=== PATIENT | female | born 1925 | race Caucasian/White ===

== ENCOUNTER 2016-10-02 22:29 | Emergency (ER) | payer MEDICARE, OTHER ==
--- NOTE | ~2016-10-02 | ER ---
PATIENT'S NAME: RICKEY OAKLEYNJ Julian [facility] AGE: 89 Y [address] ROOM: [place] [address] LOCATION: ED ADMIT DATE: 10/02/2016 ER/Outpatient Report DISCHARGE DATE: 10/03/2016 FAMILY PHYSICIAN: Physician, Unknown ATTENDING PHYSICIAN: Norm Escobar Admission date and time are documented on the medical record. I saw the patient at 2240 hours. CHIEF COMPLAINT: Midanterior chest pain and epigastric pain. HISTORY OF PRESENT ILLNESS: The patient is an 89-year-old female who comes in with a 6-hour history of midabdominal pain and epigastric pain. The patient does have Alzheimer's dementia and questionable whether she answers questions properly. Seems to lose her train of thought easily. Asking the questions about a headache, she denies headache, denies neck pain, denies back pain, really unable to tell me about the chest or abdominal pain. Denies nausea, vomiting, or diarrhea. Denies any urinary problems. She has had no recent falls. She is in Alzheimer's unit at [facility]. HOME MEDICATIONS: See attached medication list. ALLERGIES: NIACIN. SOCIAL HISTORY: Nonsmoker, nondrinker. SIGNIFICANT PAST MEDICAL HISTORY: Hypertension, Alzheimer's dementia, urosepsis, paroxysmal atrial fibrillation, chronic anticoagulation with Coumadin, bradycardia, atherosclerotic ischemic heart disease with coronary artery disease, anxiety, depression, cerebrovascular accident, gastroesophageal reflux, carotid occlusive disease, deep vein thrombosis, degenerative osteoarthritis, degenerative joint disease, and remote tobacco abuse. OPERATIONS: Left total hip arthroplasty, right total knee arthroplasty, cholecystectomy, cardiac catheterization with PTCA and stenting, colonoscopy, esophagogastroduodenoscopy, and bilateral knee arthroscopy. REVIEW OF SYSTEMS: PATIENT'S NAME: RICKEY OAKLEYNJ Julian [facility] AGE: 89 Y [address] ROOM: [place] [address] LOCATION: [facility] ADMIT DATE: 10/02/2016 ER/Outpatient Report DISCHARGE DATE: 10/03/2016 FAMILY PHYSICIAN: Physician, Unknown ATTENDING PHYSICIAN: Norm Escobar Unable to really get a good review of systems from the patient because of her dementia. PHYSICAL EXAMINATION: VITAL SIGNS: Temperature 98.1, pulse 60, respirations 23, blood pressure 134/96, and O2 sat on room air is 98%. HEAD: Normocephalic. EYES: Extraocular muscles intact. PERRL. Sclerae and conjunctivae clear, nonicteric. EARS: Clear TMs bilaterally. NOSE: Clear. THROAT: Clear. Mucous membranes moist. NECK: Negative. SPINE: Negative. LUNGS: Clear. No rales, rhonchi, or wheezes. HEART: Regular. Pulses are palpable. The patient has tenderness and discomfort across her anterior chest on palpation. ABDOMEN: Soft, nondistended. Some epigastric tenderness to deep palpation. No organomegaly or abnormal mass palpable. No true guarding or rigidity. No rebound tenderness. No CVA tenderness. EXTREMITIES: Without peripheral edema, cyanosis, or deformity. NEURO: Intact. VASCULAR: Intact. SKIN: Clear. LABORATORY DATA: EKG showed sinus rhythm, first-degree AV block, no acute ST elevation, did have some ischemic flipped Ts septally, unchanged x2, 2 hours apart. Cardiac enzymes were normal x2, 2 hours apart. White count was 3400, 43 segs, 2 bands, 53 lymphs, 1 mono, 1 eo, hemoglobin is 10.5 with hematocrit 33.8, and platelet count is 203,000. PTT was 32, pro-time was 20.3 with an INR of 1.8. Pro-BNP was 514. CMS was normal except for an elevated chloride of 111, elevated BUN of 28, elevated creatinine 1.4, low GFR 35, and magnesium was 2.0. D-dimer 0.27. Chest x-ray showed no acute infiltrate. Mild cardiomegaly. We will review x-ray with the radiologist. IMPRESSION: 1. Epigastric and midanterior chest pain. Etiology uncertain. Doubt that this is cardiac at this time. The patient had unchanged EKGs, normal cardiac enzymes x2, 2 hours apart. The patient does have a history of atherosclerotic ischemic heart disease with coronary artery disease. 2. Alzheimer's dementia. 3. Hypertension. 4. Dyslipidemia. 5. Remote tobacco abuse. PATIENT'S NAME: ESTRELLITA OAKLEY [facility] AGE: 89 Y [address] ROOM: [place] [address] LOCATION: [facility] ADMIT DATE: 10/02/2016 ER/Outpatient Report DISCHARGE DATE: 10/03/2016 FAMILY PHYSICIAN: Physician, Unknown ATTENDING PHYSICIAN: Norm Escobar 6. Paroxysmal atrial fibrillation, chronically anticoagulated with Coumadin. 7. Past history of cerebrovascular accident. 8. History of carotid occlusive disease. PLAN: The patient was dismissed from the emergency department back to Alzheimer's unit at [facility]. Continue the present home medications and care. Follow up with the personal physician as needed. MD LUIS ALVAREZ/modl /[id number] d: 10/03/16 0640 t: 10/08/16 1820, OUTPATIENT REPORT
[~2016-10-02 22:29] MED LIST changes: -ASPIRIN LO-DOSE81 MG PO; -NEURONTIN100 MG PO
[2016-10-02 22:50] LABS: HEMATOCRIT 33.8 % (30.0-46.0); HEMOGLOBIN 10.5 g/dL (10.0-15.0); MCH 28.4 pg (27.0-34.0); MCHC 31.1 gm/dL (32.0-36.5); MCV 91.4 fl (83.0-98.0); PLATELET COUNT 203 K/uL (150-450); RDW-CV 14.3 % (11.9-14.6); WBC 3.4 K/uL (4.0-11.0)
[2016-10-02 22:59] LABS: PTT 32 SECONDS (25-32)
[2016-10-02 23:01] LABS: INR - (THERAPEUTIC) 1.8 (0.9-1.1); PROTIME 20.3 SECONDS (9.6-11.1)
[2016-10-02 23:08] LABS: ALBUMIN 3.3 gm/dL (3.5-5.0); ALK PHOS 39 IU/L (33-138); ALT 16 IU/L (12-78); AST 17 IU/L (10-40); BLOOD UREA NITROGEN 28 mg/dL (6-24); CALCIUM 8.8 mg/dL (8.5-10.5); CHLORIDE 111 mMol/L (96-110); CO2 25 mMol/L (22-32); CPK 73 IU/L (21-215); CREATININE 1.4 mg/dL (0.5-1.1); ESTIMATED GFR (MDRD EQUATION) 35; SODIUM 144 mMol/L (135-145); TOTAL PROTEIN 6.5 g/dL (6.0-8.4)
[2016-10-02 23:11] LABS: TOTAL BILIRUBIN 0.2 mg/dL (0.0-1.5)
[2016-10-02 23:23] LABS: ABSOLUTE NEUTROPHIL CT (ANC) 1.5 K/uL (1.8-7.8); BANDED NEUTROPHIL # 0.1 K/uL (0.0-0.1); BANDED NEUTROPHILS % 2 %; LYMPHOCYTE # 1.8 K/uL (0.8-4.0); LYMPHOCYTE % 53 %; SEGMENTED NEUTROPHIL # 1.5 K/uL (1.8-7.8); SEGMENTED NEUTROPHIL % 43 %
[2016-10-03 01:05] LABS: CPK 105 IU/L (21-215)
[2017-01-20] MEDS ORDERED: NEURONTIN100 MG PO (14:07)
[2017-01-22] MEDS ORDERED: ASPIRIN LO-DOSE81 MG PO (14:33)
[2017-01-22] MEDS ORDERED: LEVAQUIN500 MG PO (14:34)
== END 2016-10-03 02:40 | disposition disaster alternative care site (69) ==
LOC: GMED 22:29
PROVIDERS: Emergency Medicine
DX: R07.89 Other chest pain (principal); R10.13 Epigastric pain; G30.9 Alzheimer's disease, unspecified; F02.81 Dementia in other diseases classified elsewhere, unspecified severity, with behavioral disturbance; I10 Essential (primary) hypertension; E78.5 Hyperlipidemia, unspecified; I48.0 Paroxysmal atrial fibrillation; Z79.01 Long term (current) use of anticoagulants; F32.9 Major depressive disorder, single episode, unspecified; F41.9 Anxiety disorder, unspecified; Z90.49 Acquired absence of other specified parts of digestive tract

== ENCOUNTER → 2016-10-02 | Outpatient (CLI) | payer MEDICARE, OTHER ==
[~2016-10-02] MED LIST: ARICEPT10 MG PO; ASPIRIN LO-DOSE81 MG PO; AVAPRO150 MG PO; CALCIUM 600 +1 EAC6 PO; CLARITIN10 MG PO; COLACE100 MG PO; COUMADIN ** 9/62 MG PO; COUMADIN **IA1 MG PO; DIFLUCAN150 MG PO; ELAVIL25 MG PO; FENOFIBRATE134 MG PO; FISH OIL 1,2001 EAC2 PO; IMDUR30 MG PO; K-TAB ER20 MEQ PO; LEVAQUIN500 MG PO; LOPRESSOR25 MG PO; LOTRIMIN30 GM TOP; MAG-OX-400(241400 MG PO; NEURONTIN100 MG PO; SEROQUEL25 MG PO; SEROQUEL50 MG PO; TYLENOL325 MG PO; VESICARE5 MG PO; WELCHOL 625MG625 MG PO
== END | disposition disaster alternative care site (69) ==
LOC: GAMB 22:08
DX: R07.9 Chest pain, unspecified (principal); I20.9 Angina pectoris, unspecified; I44.0 Atrioventricular block, first degree; I45.2 Bifascicular block; F03.90 Unspecified dementia, unspecified severity, without behavioral disturbance, psychotic disturbance, mood disturbance, and anxiety; R94.31 Abnormal electrocardiogram [ECG] [EKG]
CPT/HCPCS: A0425; A0427

== ENCOUNTER 2016-10-19 17:34 | Emergency (ER) | payer MEDICARE, OTHER ==
--- NOTE | ~2016-10-19 | ER ---
PATIENT'S NAME: RICKEY OAKLEYMI Julian [facility] AGE: 89 Y [address] ROOM: [place] [address] LOCATION: [facility] ADMIT DATE: 10/19/2016 ER/Outpatient Report DISCHARGE DATE: 10/19/2016 FAMILY PHYSICIAN: Ceci Crowder MD ATTENDING PHYSICIAN: Peyton Thorne Time of Patient Arrival: 1734 hours. Time of Patient Evaluation: 1745 hours. CHIEF COMPLAINT: Hip injury from fall. HISTORY OF PRESENT ILLNESS: This is an 89-year-old female who presents to the ER via [facility] Unit crew. Apparently, the fall was witnessed by staff. Apparently, she was swinging her walker around to try and get it in front of her and made her fall over and she landed on her right hip. They state that she did not hit her head. She was able to ambulate afterwards and when ambulance crew arrived, she was standing, and awaiting for them. She did sustain a hematoma to her right hip area, but they wanted her to be checked out. The patient denies any neck or back pain or any other problems at this time. MEDICATIONS: Please see medication list in nurse's notes. PAST MEDICAL HISTORY: 1. Dementia. 2. Atrial fibrillation. 3. Anxiety. 4. Hypertension. 5. Heart disease. 6. Hypercholesterolemia. SOCIAL HISTORY: Denies smoking, drug, or alcohol use. REVIEW OF SYSTEMS: A 10-point review of system was completed and was negative with the exception of those discussed in the HPI. PHYSICAL EXAMINATION: VITAL SIGNS: Weight 65.9 kg taken, blood pressure 153/86, pulse 57, respirations 16, temperature 98.1 degrees with a temporal scanner, saturations 95% on room air. [place] Coma Score is 15. PATIENT'S NAME: RICKEY OAKLEYMI Julian [facility] AGE: 89 Y [address] ROOM: [place] [address] LOCATION: [facility] ADMIT DATE: 10/19/2016 ER/Outpatient Report DISCHARGE DATE: 10/19/2016 FAMILY PHYSICIAN: Ceci Crowder MD ATTENDING PHYSICIAN: Peyton Thorne GENERAL: Alert, calm, well-developed female, in no acute distress. When family arrived, they state that she is at her normal mental status. HEENT: Head: Normocephalic. Eyes: Pupils are equal and reactive to light. She does display moist mucous membranes. LUNGS: Clear to auscultation bilaterally. No wheeze or crackles. Normal respiratory effort. HEART: Regular rate and rhythm. No lifts, thrills, or murmurs. ABDOMEN: Soft. It is nontender. She has good bowel sounds throughout. No masses were palpated. EXTREMITIES: She does have some tenderness over the right hip. She does have a large hematoma noted to the lateral aspect of her right thigh as well. NEURO: Cranial nerves 2 through 12 grossly intact. Gait is steady without assistance. She was able to ambulate without difficulty. LABORATORY DATA: None were done. X-RAYS: X-rays of the right hip and pelvis was done. No fracture was seen. IMPRESSION: Right hip contusion from ground level fall. ASSESSMENT AND PLAN: We did give the patient's family reassurance. We did give her some Tylenol here in the emergency room as well. We will dismiss her to home. They need to ice any sore area and follow up her primary care physician in 1 week. The patient's family and the patient understands and agrees with care. BUZZ GANDHI PA-C FOR MD BIANCA BELL/tony /[id number] d: t: 10/25/16 1234, OUTPATIENT REPORT
[~2016-10-19 17:34] MED LIST changes: -ASPIRIN LO-DOSE81 MG PO; -NEURONTIN100 MG PO
[2017-01-20] MEDS ORDERED: NEURONTIN100 MG PO (14:07)
[2017-01-22] MEDS ORDERED: ASPIRIN LO-DOSE81 MG PO (14:33)
[2017-01-22] MEDS ORDERED: LEVAQUIN500 MG PO (14:34)
== END 2016-10-19 18:39 | disposition disaster alternative care site (69) ==
LOC: GACC 17:34
DX: S70.01XA Contusion of right hip, initial encounter (principal); F03.90 Unspecified dementia, unspecified severity, without behavioral disturbance, psychotic disturbance, mood disturbance, and anxiety; I48.91 Unspecified atrial fibrillation; F41.9 Anxiety disorder, unspecified; I10 Essential (primary) hypertension; E78.00 Pure hypercholesterolemia, unspecified; Z79.82 Long term (current) use of aspirin; Z79.899 Other long term (current) drug therapy; Z79.01 Long term (current) use of anticoagulants; W18.30XA Fall on same level, unspecified, initial encounter

== ENCOUNTER → 2016-10-19 | Outpatient (CLI) | payer MEDICARE, OTHER ==
[~2016-10-19] MED LIST changes: +ASPIRIN LO-DOSE81 MG PO; +NEURONTIN100 MG PO
== END | disposition disaster alternative care site (69) ==
LOC: GAMB 17:20
DX: S79.911A Unspecified injury of right hip, initial encounter (principal); I10 Essential (primary) hypertension; F03.90 Unspecified dementia, unspecified severity, without behavioral disturbance, psychotic disturbance, mood disturbance, and anxiety; Z79.2 Long term (current) use of antibiotics; Z79.899 Other long term (current) drug therapy; Z86.73 Personal history of transient ischemic attack (TIA), and cerebral infarction without residual deficits; W01.0XXA Fall on same level from slipping, tripping and stumbling without subsequent striking against object, initial encounter
CPT/HCPCS: A0425; A0429